=== PATIENT | male | born 1985 | race Caucasian/White ===

== ENCOUNTER 2021-04-25 21:55 | Emergency (ER) | payer BC ==
[~2021-04-25] VITALS: Ht 175.3 cm; Wt 83.2 kg
[2021-04-25] MEDS ORDERED: IBUPROFEN 600 MG TABLET PO ONE (22:15)
[2021-04-26 02:29] VITALS: BP 122/72
== END 2021-04-26 02:00 | disposition home or self-care (01) ==
LOC: EMS 21:59
DX: S83.91XA Sprain of unspecified site of right knee, initial encounter (principal); Z88.0 Allergy status to penicillin; X50.1XXA Overexertion from prolonged static or awkward postures, initial encounter; Y93.66 Activity, soccer; Y92.89 Other specified places as the place of occurrence of the external cause; Y99.8 Other external cause status
CPT/HCPCS: 29505; 99283